=== PATIENT | male | born 1960 | race Caucasian/White ===

== ENCOUNTER 2022-06-14 08:15 | Outpatient (REF) | payer OTHER, SELFPAY ==
[2022-06-14 10:30] LABS: Basophils Percent Auto 0.6 % (0-2); Eosinophils Absolute Auto 0.5 X10*3/uL (0.0-0.4); Hematocrit 47.9 % (42.0-52.0); Hemoglobin 15.5 g/dl (14.0-18.0); Imm Gran Abs Auto 0.02 X10*3/uL (0.00-0.03); Imm Gran Pct Auto 0.3 % (0.0-0.4); Lymphocytes Absolute Auto 1.1 X10*3/uL (1.2-4.9); Lymphocytes Percent Auto 17.2 % (20-40); MANUAL DIFF FLAG SCAN; Mean Corpuscular HGB Conc 32.4 g/dl (31.0-36.0); Mean Corpuscular Hemoglobin 28.8 pg (27.0-33.0); Mean Platelet Volume 13.9 fL (9.4-12.4); Monocytes Absolute Auto 0.5 X10*3/uL (0.1-1.2); Monocytes Percent Auto 8.1 % (2-11); Neutrophils Absolute Auto 4.3 x10*3/uL (2.0-8.3); Neutrophils Percent Auto 66.8 % (45-73); PLT CLUMP 1; Red Blood Count 5.38 X10*6/uL (4.60-5.80); Red Cell Distribution Width 12.3 % (11.0-16.0); SCAN SMEAR FLAG 1
[2022-06-14 10:41] LABS: Alanine Aminotransferase 23 U/L (0-40); Albumin Level 4.2 g/dL (3.5-5.0); Alkaline Phosphatase 54 U/L (39-117); Anion Gap 12 (12-20); Aspartate Amino Transferase 16 U/L (5-37); Bilirubin Total 1.2 mg/dL (0.0-1.0); Blood Urea Nitrogen 22 mg/dL (9-16); Calcium 9.2 mg/dL (8.4-10.2); Carbon Dioxide 29 mmol/L (22-29); Chloride 103 mmol/L (96-108); Cholesterol 145 mg/dL; Estimated Glomerular Filt Rate > 60; Glucose Fasting 104 mg/dL (60-99); HDL Cholesterol 33 mg/dL; LDL Cholesterol Calculated 99 mg/dl; Potassium 4.6 mmol/L (3.3-5.1); Sodium 139 mmol/L (135-145); Triglycerides 65 mg/dL
[2022-06-14 11:05] LABS: Thyroid Stimulating Hormone 1.67 uIU/mL (0.32-4.0)
[2022-06-14 11:13] LABS: Platelet Count 146 X10*3/uL (160-400); SLIDE REVIEW VERIFIED; White Blood Count 6.4 X10*3/uL (4.8-10.8)
== END 2022-06-14 08:16 | disposition home or self-care (01) ==
LOC: HO.10HDL 08:15
PROVIDERS: Visit Provider Internal Medicine
DX: Z00.00 Encounter for general adult medical examination without abnormal findings (principal); J45.909 Unspecified asthma, uncomplicated; L29.9 Pruritus, unspecified; M54.50 Low back pain, unspecified; R63.4 Abnormal weight loss
CPT/HCPCS: 36415; 80053; 80061; 84443; 85025

== ENCOUNTER 2023-10-01 09:58 | Outpatient (REF) | payer MEDICARE, SELFPAY ==
[2023-10-01 10:12] LABS: MANUAL DIFF FLAG NO
[2023-10-01 10:45] LABS: Basophils Percent Auto 0.5 % (0-2); Eosinophils Absolute Auto 0.3 X10*3/uL (0.0-0.4); Eosinophils Percent Auto 3.9 % (0-4); Hematocrit 47.2 % (42.0-52.0); Hemoglobin 15.5 g/dl (14.0-18.0); Imm Gran Abs Auto 0.03 X10*3/uL (0.00-0.03); Imm Gran Pct Auto 0.5 % (0.0-0.4); Lymphocytes Absolute Auto 1.1 X10*3/uL (1.2-4.9); Lymphocytes Percent Auto 16.4 % (20-40); Mean Corpuscular HGB Conc 32.8 g/dl (31.0-36.0); Mean Corpuscular Hemoglobin 29.4 pg (27.0-33.0); Mean Corpuscular Volume 89.4 fL (80.0-98.0); Mean Platelet Volume 13.2 fL (9.4-12.4); Monocytes Absolute Auto 0.5 X10*3/uL (0.1-1.2); Monocytes Percent Auto 7.1 % (2-11); Neutrophils Absolute Auto 4.7 x10*3/uL (2.0-8.3); Neutrophils Percent Auto 71.6 % (45-73); Platelet Count 164 X10*3/uL (160-400); Red Blood Count 5.28 X10*6/uL (4.60-5.80); Red Cell Distribution Width 12.6 % (11.0-16.0); White Blood Count 6.6 X10*3/uL (4.8-10.8)
[2023-10-01 11:22] LABS: Alanine Aminotransferase 18 U/L (0-40); Alkaline Phosphatase 49 U/L (39-117); Anion Gap 11 (12-20); Aspartate Amino Transferase 13 U/L (5-37); Bilirubin Total 1.1 mg/dL (0.0-1.0); Blood Urea Nitrogen 21 mg/dL (9-16); Calcium 9.1 mg/dL (8.4-10.2); Carbon Dioxide 26 mmol/L (22-29); Chloride 105 mmol/L (96-108); Cholesterol 143 mg/dL (<200); Estimated Glomerular Filt Rate > 60; Glucose Random 108 mg/dL (60-115); HDL Cholesterol 33 mg/dL (>40); LDL Cholesterol Calculated 95 mg/dL (<100); Sodium 138 mmol/L (135-145); Total Protein 6.9 g/dL (6.5-8.0); Triglycerides 76 mg/dL (<150)
== END 2023-10-01 09:59 | disposition home or self-care (01) ==
LOC: HO.LAB 09:58
PROVIDERS: PCP Internal Medicine; Visit Provider Internal Medicine
DX: H54.61 Unqualified visual loss, right eye, normal vision left eye (principal); I10 Essential (primary) hypertension; J45.909 Unspecified asthma, uncomplicated; M11.261 Other chondrocalcinosis, right knee; Z12.5 Encounter for screening for malignant neoplasm of prostate
CPT/HCPCS: 36415; 80053; 80061; 84153; 85025

== ENCOUNTER 2025-07-08 09:19 | Outpatient (REF) | payer OTHER, SELFPAY ==
--- NOTE | 2025-07-08 | PFT_ITS ---
Flows: FEV1: 97 % of predicted at 2.97 L FVC: 109 % of predicted at 4.32 L FEV1/FVC: 69 % Bronchodilator response: Present Volumes: Total lung capacity: 95 % of predicted at 6.18 L Residual volume: 118 % of predicted at 2.55 L Slow vital capacity: 83 % of predicted at 3.63 L Expiratory reserve volume: 132 % of predicted at 1.44 L Diffusion capacity: Normal Impression: [id number] obstructive ventilatory defect with positive bronchodilator response. MTDD
[2025-07-08 10:30] VITALS: PULSE 71
== END 2025-07-08 09:20 | disposition home or self-care (01) ==
LOC: HO.RESP 09:19
PROVIDERS: PCP Internal Medicine; Visit Provider Internal Medicine
DX: J45.40 Moderate persistent asthma, uncomplicated (principal)
CPT/HCPCS: 94060; 94640; 94727; 94729

== ENCOUNTER → 2025-07-08 09:20 | Outpatient (BNV) | payer OTHER, SELFPAY | PROVIDERS: PCP Internal Medicine; Visit Provider Internal Medicine Pulmonary Disease | DX: J98.4 Other disorders of lung (principal) | CPT/HCPCS: 94060; 94727; 94729 ==

== ENCOUNTER 2025-07-31 09:48 | Outpatient (REF) | payer OTHER, SELFPAY ==
--- OUTSIDE RECORDS SUMMARY | 2025-07-31 10:43 | XMS_ITS | Encounter Summary ---
Author Organization [employer] Address [address] [place] [address] Care Team Providers Care Manufacturing Technologist Name Role Phone April English MD Primary Care Provider + Reason for Visit * Reason Onset Date Comments Medication Question 05/29/2025 Encounter Details Date Type Department Care Team (Late st Contact Info) Description 05/29/2025 Telephone [facility] [address] [place] [address] April English MD [address] [place] [address] Medication Question Social History Tobacco Use Types Packs/Day Years Used Date Smoking Tobacco: Never Passive Smoke Exposure: Never Smokeless Tobacco: Never Alcohol Use Standard Drinks/Week Comments Never 0 (1 standard drink = 0.6 oz pur e alcohol) Depression Answer Date Recorded Patient Health Questionnaire-9 Score 3 06/02/2025 Patient Health Questionnaire-9 Score 3 06/02/2025 Last PHQ-9: Questionnaire Data Not on file 1 Housing Stability Answer Date Recorded What is your housing situation today? I have aria mendez 03/20/[address] you li ve. Do you have problems with any of the following? None of the above 03/20/2025 Food Insecurity Answer Date Recorded Within the past 12 months, y ou worried that your food would run out before you got money to buy more: Never True 03/20/2025 Within the past 12 months,th e food you bought just didn't last and you didn't have enough money to get more: Never True 03/2025 Transportation Answer Date Recorded In the past 12 months, has l ack of transportation kept you from medical appts, meetings, work or from getting things needed for daily living? No 03/20/2025 Utilities Answer Date Recorded In the past 12 months, has t he electric, gas, oil or water company threatened to shut off services in your home? No 03/20/2025 Depression Answer Date Recorded Patient Health Questionnaire-2 Score 0 06/02/2025 Internet Access Answer Date Recorded Internet Access Q1 Yes 03/30/2025 Internet Access Q2 Not on file 03/30/2025 Sex and Gender Information Value Date Recorded Sex Assigned at Male 06/12/2022 10:20 AM EDT Legal Sex Male 10:20 AM EDT Gender Identity Male 12/09/2024 6:48 PM EDT Sexual Orientation Straight 12/09/2024 6: 48 PM EDT documented as of this encounter Miscellaneous Notes * Telephone Encounter - Anita Du LPN - 05/29/2025 9:28 AM EDT Please review Patient's request as it is not listed on med list * Telephone Encounter - Jd Etienne - 05/29/2025 9:19 AM EDT Tc from pt daughter with verbal confirmation requesting a Symbicort. Any questions contact pt at [phone] documented in this encounter Plan of Treatment Not on file documented as of this encounter Visit Diagnoses Not on filedocumented in this encounter Additional Health Concerns Assessment Noted Time PHQ-9 Depression Total Score: 0 03/30/20 9:58 AM EDT documented as of this encounter Care Teams Manufacturing Technologist Relationship Specialty Start Date End Date April English MD [address] [place] [id number] PCP - General Internal Medicine 03/30/25 documented as of this encounter
--- OUTSIDE RECORDS SUMMARY | 2025-07-31 10:43 | XMS_ITS | Encounter Summary ---
Author Organization [employer] Address [address] [place] [address] Care Team Providers Care Clinical Quality Analyst Name Role Phone April English MD Primary Care Provider + Reason for Visit * Reason Comments Med Refill Encounter Details Date Type Department Care Team (Late st Contact Info) Description 03/06/2025 Refill [facility] [address] [place] [address] Manas Massey MD [address] [place] [address] Allergic rhinitis, unspecified seasonality, unspecified trigger Social History Tobacco Use Types Packs/Day Years Used Date Smoking Tobacco: Never Assessed Sex and Gender Information Value Date Recorded Sex Assigned at Male 06/12/2022 10:20 AM EDT Legal Sex Male 10:20 AM EDT Gender Identity Male 12/09/2024 6:48 PM EDT Sexual Orientation Straight 12/09/2024 6: 48 PM EDT documented as of this encounter Plan of Treatment Not on file documented as of this encounter Visit Diagnoses Diagnosis Allergic rhinitis, unspecified seasonality, unspecified trigger documented in this encounter Care Teams Clinical Quality Analyst Relationship Specialty Start Date End Date April English MD [address] [place] [phone] PCP - General Internal Medicine 03/30/25 documented as of this encounter
--- OUTSIDE RECORDS SUMMARY | 2025-07-31 10:43 | XMS_ITS | Clinical Summary ---
Author Organization [employer] Address [address] [address] Care Team Providers Care Carpenter/Labor Name Role Phone April English MD Primary Care Provider + Allergies No known active allergies Medications Blood Pressure Monitoring (Blood Pressure Cuff) misc Use daily as prescribed 1 each 5 Active albuterol 108 (90 Base) MCG/ACT inhaler Inhale 2 puffs every 6 (six) hours if needed for wheezing. 18 g 2 5 Active famotidine (Pepcid) 40 MG tablet Take 1 tablet (40 mg) by mouth Once per day. 30 tablet 5 Active fluticasone (Flonase) 50 MCG/ACT nasal sprayIndications :Allergic rhinitis, unspecified seasonality, unspecified trigger Use 1-2 sprays each nostril daily. Shake gently. Before first use, prime pump. After use, clean tip and replace cap. 16 g 2 5 Active budesonide-formo terol (Symbicort) 80-4.5 MCG/ACT inhaler Inhale 2 puffs in the morning and at bedtime. Rinse mouth with water after use to reduce aftertaste and incidence of candidiasis. Do not swallow. 1 each 3 5 05/29/20 26 Active cyclobenzaprine (Flexeril) 10 MG tabletIndication s:Chronic bilateral low back pain without sciatica Take 1 tablet (10 mg) by mouth at bedtime for 10 days. 10 tablet 5 Active acetaminophen (Tylenol Extra Strength) 500 MG tablet Take 1 tablet (500 mg) by mouth every 6 (six) hours if needed for mild pain. 120 tablet 07/02/20 25 Active Problems Problem Noted Date Diagnosed Date Screening for colorectal cancer 06/02/2025 Chronic bilateral low back pain without sciatica 06/02/2025 Assessment & Plan (06/23/2025 9:47 AM EST): Start tylenol + flexeril x 1w then prn We discussed re stretching exercises and to come to acupuncture clinic He'll callback prn I f he wants to be referred to PT< he declined today. Vaccination declined 06/02/2025 Assessment & Plan (06/23/2025 9:46 AM EST): Patient declined influenza, COVID and PCV immunization. Advised to get this immunization at the earliest convenience Elevated blood pressure reading 03/30/2025 Assessment & Plan (06/23/2025 9:45 AM EST): Mild hypertension today, patient is to bring BP readings from home. Counseled re low salt diet/increase moderate physical activity. Check home BP BIW and prn CP/BETTENCOURT/RIDDLE Non smoking patient. Assessment & Plan (03/30/2025 5:34 PM EDT): Will have patient check BP at home and bring BP machine at next visit Counseled re low salt diet/increase moderate physical activity. Check home BP BIW and prn CP/BETTENCOURT/RIDDLE Non smoking patient. Follow-up with me in 1 to 2 months Mild intermittent asthma without complication Moderate persistent asthma 03/30/2025 Assessment & Plan (06/23/2025 9:48 AM EST): He recovered completely after COVID. Will continue Symbicort twice daily + as needed shortness of breath. He declined influenza, COVID or PCV immunization Will do PFTs in about 3 to 4 months time. Assessment & Plan (03/30/2025 5:37 PM EDT): Worsened reportedly after COVID, will order PFTs. He will continue albuterol daily for now Advised to use albuterol 3 times daily for the next 5 days while he is on treatment for COVID Follow-up with me in 1 to 2 months Gastroesophageal reflux disease 03/30/2025 Assessment & Plan (03/30/2025 5:35 PM EDT): Patient is burping persistently for few years now, most likely related to esophageal dysmotility Advised regarding having a small infarction meals, will do UGIS and follow-up at next visit Use Pepcid daily x 1 month Viral upper respiratory tract infection 03/30/20 Preventative health care 03/30/2025 Assessment & Plan (03/30/2025 5:36 PM EDT): We discussed about importance of STI prevention, he wants to have STI testing, will order also cholesterol and basic FBS COVID 03/30/2025 Assessment & Plan (03/30/2025 11:14 AM EDT): Rx Paxlovid x 5 days, Adger interactions module checked, no significant interactions found. Isolation until 04/01/25. Can be out of isolation, wearing a mask from 04/01- , if sxs are resolved without other meds for at least 24h. Counseled to let close contacts within the past week, know about dx so they can be tested if needed. Rest (sleep at least 8 hours a night). Wash hands frequently Hydrate with plenty of water. Use saline nose drops Take Acetaminophen or Ibuprofen as Prn fever or discomfort Gargle with salt water and use throat sprays/lozenges prn Use heated, humidified air or take hot showers. If you have a fever, stay home and away from others (self isolation) until fever-free for 72 hours (temperature should be less than 100 F without medication). Resolved Problems Problem Noted Date Diagnosed Date Resolved Date Viral gastroenteritis 03/30/20252024 Encounters Date Type Department Care Team Description 07/08/2025 Telephone [facility] [address] [place] [phone] Jacklyn Waldron RN Cologuard ([facility] Outreach) 06/02/2025 11:15 AM EDT Office Visit [facility] [address] [place] [address] April English MD Elevated blood pressure reading (Primary Dx); Moderate persistent asthma without complication; Chronic bilateral low back pain without sciatica; Vaccination declined; Screening for colorectal cancer; Screening for colon cancer 06/02/2025 Travel 06/01/[address] [address] April English MD Chart Prep 05/29/[address] [facility] [address] [place] [address] April English MD 05/29/[address] [address] April English MD Medication Question from Last 3 Months Social History Tobacco Use Types Packs/Day Years Used Date Smoking Tobacco: Never Passive Smoke Exposure: Never Smokeless Tobacco: Never Tobacco Cessation:Counseling Given: Not Answered Alcohol Use Standard Drinks/Week Comments Never 0 [...] Orientation Straight 12/09/2024 6: 48 PM EDT Last Filed Vital Signs Vital Sign Reading Time Taken Comments Blood Pressure 110/70 06/02/2025 11:14 AM EDT Pulse 74 06/02/2025 11:14 AM EDT Temperature 36.6 C (97.9 F) 06/02/2025 11:14 AM EDT Respiratory Rate 18 06/02/2025 11:1 4 AM EDT Oxygen Saturation 98% 06/02/2025 11: 14 AM EDT Inhaled Oxygen Concentration - - Weight 90.2 kg (198 lb 12.8 oz) 025 11:14 AM EDT Height 172.7 cm (5' 8 ) 06/02/2025 11:1 4 AM EDT Body Mass Index 30.23 06/02/2025 11:14 AM EDT Plan of Treatment Health Maintenance Due Date Last Done Comments CT Colonography 1960 Colonoscopy 1960 Colorectal Cancer Screening 1960 FIT DNA/Cologuard 1960 FIT 1960 FOBT 1960 Sigmoidoscopy 1960 Hepatitis C Screening 01/27/1978 Pneumococcal Vaccine: 50+ Years (1 of 2 - PCV) 01/27/1979 RSV Patients and Patients Aged 60 years or older (1 - Risk 50-74 years 1-dose series) 01/27/2010 Zoster Vaccines (1 of 2) 01/27/2010 Lipid Panel 02/22/2025 02/23/2020 COVID-19 Vaccine (2 - season) 2025 06/14/2021 Influenza Vaccine (#1) 2025 3, 07/11/2012, 04/25/2011, Additional history exists Alcohol/Substance Use Screening 03/30/2026 03/30/2025 SDOH Screening 03/30/2026 03/30/2025 Depression Screening 06/02/2026 06/02/2025, 06/02/20 25 Tobacco Screening 06/02/2026 06/02/2025 DTaP/Tdap/Td Vaccines (3 - Td or Tdap) 07/28/2027 07/28/2017, 09/04/2014 HIB Vaccines Aged Out No longer eligi ble based on patient's age to complete this topic HPV Vaccines Aged Out No longer eligi ble based on patient's age to complete this topic Hepatitis A Vaccines Aged Out No long er eligible based on patient's age to complete this topic Hepatitis B Vaccines Aged Out No long er eligible based on patient's age to complete this topic IPV Vaccines Aged Out No longer eligi ble based on patient's age to complete this topic Meningococcal B Vaccine Aged Out No l onger eligible based on patient's age to complete this topic Meningococcal Vaccine Aged Out No ana erna eligible based on patient's age to complete this topic RSV under 20 months Aged Out No longe r eligible based on patient's age to complete this topic Rotavirus Vaccines Aged Out No longer eligible based on patient's age to complete this topic Procedures Procedure Name Priority Date/Time Associated Diagnosis Comments LIPID PANEL, STANDARD Routine 02/23/2020 9:38 AM EDT from Last 3 Months or Most Recently Relevant to Health Maintenance Results * (ABNORMAL) LIPID PANEL, STANDARD (02/23/2020 9:38 AM EDT) Cholesterol, Total 144 <200 mg/dL [facility] Non-HDL Cholesterol 108 <130 mg/dL (calc) [facility] Comment: For patients with diabetes plus 1 major ASCVD risk factor, treating to a non-HDL-C goal of <100 mg/dL (LDL-C of <70 mg/dL) is considered a therapeutic option. Cholesterol, Total 144 <200 mg/dL [facility] HDL Cholesterol 36(L) > OR = 40 mg/dL [facility] Triglycerides 52 <150 mg/dL [facility] Cholesterol, Total 144 <200 mg/dL [facility] HDL Cholesterol 36(L) > OR = 40 mg/dL [facility] Triglycerides 52 <150 mg/dL [facility] LDL Cholesterol 95 mg/dL (calc) [facility] Comment: Reference range: <100 Desirable range <100 mg/dL for primary prevention; <70 mg/dL for patients with CHD or diabetic patients with > or = 2 CHD risk factors. LDL-C is now calculated using the Axel-Mckee calculation, which is a validated novel method providing better accuracy than the Friedewald equation in the estimation of LDL-C. Axel SS et al. TIAGO. 2013;310(19): 9908-5663 (http://education.Easy Voyage.Shopnlist/faq/ZVS223) Chol/HDLC Ratio 4.0 <5.0 (calc) [facility] Non-HDL Cholesterol 108 <130 mg/dL (calc) [facility] Comment: For patients with diabetes plus 1 major ASCVD risk factor, treating to a non-HDL-C goal of <100 mg/dL (LDL-C of <70 mg/dL) is considered a therapeutic option. HDL Cholesterol 36(L) > OR = 40 mg/dL [facility] Triglycerides 52 <150 mg/dL [facility] LDL Cholesterol 95 mg/dL (calc) [facility] Comment: Reference range: <100 Desirable range <100 mg/dL for primary prevention; <70 mg/dL for patients with CHD or diabetic patients with > or = 2 CHD risk factors. LDL-C is now calculated using the Axel-Mckee calculation, which is a validated novel method providing better accuracy than the Friedewald equation in the estimation of LDL-C. Axel SS et al. TIAGO. 2013;310(19): 1305-6662 (http://education.Easy Voyage.Shopnlist/faq/BTS058) Chol/HDLC Ratio 4.0 <5.0 (calc) [facility] Non-HDL Cholesterol 108 <130 mg/dL (calc) [facility] Comment: For patients with diabetes plus 1 major ASCVD risk factor, treating to a non-HDL-C goal of <100 mg/dL (LDL-C of <70 mg/dL) is considered a therapeutic option. Chol/HDLC Ratio 4.0 <5.0 (calc) [facility] LDL Cholesterol 95 mg/dL (calc) [facility] Comment: Reference range: <100 Desirable range <100 mg/dL for primary prevention; <70 mg/dL for patients with CHD or diabetic patients with > or = 2 CHD risk factors. LDL-C is now calculated using the Axel-Mckee calculation, which is a validated novel method providing better accuracy than the Friedewald equation in the estimation of LDL-C. Axel SS et al. TIAGO. 2013;310(19): 9266-1184 (http://Digital Folio.Easy Voyage.Shopnlist/faq/JTL159) 02/23/2020 9:38 AM EDT us Jd Givens MD LAB BLOOD ORDERABLES Final Resul t [facility] [address] from Last 3 Months or Most Recently Relevant to Health Maintenance Insurance [facility] ONE CARE < 65 [place] [id number] Care Teams Carpenter/Labor Relationship Specialty Start Date End Date April English MD [address] [place] [id number] PCP - General Internal Medicine 03/30/25
--- OUTSIDE RECORDS SUMMARY | 2025-07-31 10:43 | XMS_ITS | Encounter Summary ---
Author Organization [employer] Address [address] [place] [address] Care Team Providers Care Film Casting Operator Name Role Phone April English MD Primary Care Provider + Reason for Visit * Reason Comments Med Change Request Encounter Details Date Type Department Care Team ([facility] st Contact Info) Description 04/24/2025 Refill [facility] [address] [place] [address] April English MD [address] [place] [address] Social History Tobacco Use Types Packs/Day Years Used Date Smoking Tobacco: Never Passive Smoke Exposure: Never Smokeless Tobacco: Never Alcohol Use Standard Drinks/Week Comments Never 0 (1 standard drink = 0.6 oz pur e alcohol) Depression Answer Date Recorded Patient Health Questionnaire-9 Score 0 03/30/2025 Patient Health Questionnaire-9 Score 0 03/30/2025 Last PHQ-9: Questionnaire Data Not on file 0 03/30/2025 Housing Stability Answer Date Recorded What is [...] Date Recorded Patient Health Questionnaire-2 Score 0 03/30/2025 Internet Access Answer Date Recorded Internet Access [...] documented as of this encounter Care Teams Film Casting Operator Relationship Specialty Start Date End Date April nEglish MD [address] [place] [id number] PCP - General Internal Medicine 03/30/25 documented as of this encounter
[2025-07-31 12:58] LABS: Hematocrit 48.7 % (42.0-52.0); Hemoglobin 16.1 g/dl (14.0-18.0); Imm Gran Abs Auto 0.03 X10*3/uL (0.00-0.03); Imm Gran Pct Auto 0.4 % (0.0-0.4); Lymphocytes Absolute Auto 1.0 X10*3/uL (1.2-4.9); MANUAL DIFF FLAG SCAN; Mean Corpuscular HGB Conc 33.1 g/dl (31.0-36.0); Mean Corpuscular Hemoglobin 29.4 pg (27.0-33.0); Mean Corpuscular Volume 88.9 fL (80.0-98.0); NRBC Abs Auto 0.000 X10*3/uL (0.0-0.012); NRBC Pct Auto 0.0 /100WBC (0.0-0.2); PLT CLUMP 1; Red Blood Count 5.48 X10*6/uL (4.60-5.80); SCAN SMEAR FLAG 1
[2025-07-31 13:39] LABS: Alanine Aminotransferase 20 U/L (0-40); Albumin Level 4.4 g/dL (3.5-5.0); Anion Gap 10 (12-20); Aspartate Amino Transferase 20 U/L (5-37); Blood Urea Nitrogen 18 mg/dL (9-16); Calcium 9.7 mg/dL (8.4-10.2); Carbon Dioxide 27 mmol/L (22-29); Chloride 107 mmol/L (96-108); Estimated Glomerular Filt Rate > 60; Potassium 4.4 mmol/L (3.3-5.1); Sodium 140 mmol/L (135-145); Total Protein 7.2 g/dL (6.5-8.0)
[2025-07-31 13:40] LABS: Alkaline Phosphatase 53 U/L (39-117); Cholesterol 156 mg/dL (<200); HDL Cholesterol 31 mg/dL (>40); Triglycerides 72 mg/dL (<150)
[2025-07-31 13:52] LABS: Platelet Count 185 X10*3/uL (160-400); White Blood Count 7.5 X10*3/uL (4.8-10.8)
[2025-07-31 14:02] LABS: Reflex LDLD? No
[2025-08-03 03:56] LABS: Syphilis Screen Nonreactive (Nonreactive)
[2025-08-03 04:53] LABS: HBS Num1 0.46 mIU/mL (0-7.99); HBc Num1 0.10 S/CO (0.00-0.79); HBsAGNum1 0.36 S/CO (0.00-0.99); HIV Num 1 0.06 S/CO (0.00-0.99); Hepatitis A Antibody IgM 0.11 Index (0-0.79); Hepatitis B Surface Antigen Negative (Negative); ~HepC Num1 0.13 S/CO (0.00-0.79); ~Hepatitis A Antibody IgM Nonreactive (Nonreactive); ~Hepatitis B Surface Antibody NONREACTIVE (Nonreactive); ~Hepatitis C Antibody Nonreactive (Nonreactive)
== END 2025-07-31 09:49 | disposition home or self-care (01) ==
LOC: HO.HHCL 09:48
PROVIDERS: PCP Internal Medicine; Visit Provider Internal Medicine
DX: Z00.00 Encounter for general adult medical examination without abnormal findings (principal); J45.40 Moderate persistent asthma, uncomplicated; R03.0 Elevated blood-pressure reading, without diagnosis of hypertension; K21.9 Gastro-esophageal reflux disease without esophagitis; Z13.6 Encounter for screening for cardiovascular disorders; Z13.29 Encounter for screening for other suspected endocrine disorder; Z11.4 Encounter for screening for human immunodeficiency virus [HIV]; Z01.84 Encounter for antibody response examination
CPT/HCPCS: 36415; 80053; 80061; 84443; 85025; 86704; 86706; 86709; 86780; 86803; 87340; 87389